=== PATIENT | male | born 1935 | race Caucasian/White ===

== ENCOUNTER 2017-09-17 19:38 | Emergency (ER) | payer OTHER ==
[~2017-09-17] VITALS: Ht 152.4 cm; Wt 64.9 kg
[~2017-09-17 19:38] MED LIST: LEVAQUIN750 MG PO; LIPITOR; MEDROL4 MG PO; PROAIR HFA8.5 GM; PROAIR HFA8.5 GM PO; PROVENTIL HFA6.7 GM IH; PROVENTIL3 ML/2.5 M IH; TUSSIONEX PENNKI5 ML PO; ZYNCOF 20-400120 ML PO; [UNRECOGNIZED DRUG - OTHER]
== END 2017-09-17 23:51 | disposition home or self-care (01) ==
LOC: ER 19:38
DX: J44.9 Chronic obstructive pulmonary disease, unspecified (principal)

== ENCOUNTER → 2017-12-21 | Emergency (ER) | payer OTHER ==
[~2017-12-21] VITALS: Ht 167.6 cm; Wt 65.3 kg
== END | disposition home or self-care (01) ==
LOC: ER 14:20
DX: R07.89 Other chest pain (principal); T82.84 Pain due to cardiac and vascular prosthetic devices, implants and grafts; Z45.02 Encounter for adjustment and management of automatic implantable cardiac defibrillator; Y71.8 Miscellaneous cardiovascular devices associated with adverse incidents, not elsewhere classified

== ENCOUNTER 2018-02-22 13:34 | Emergency (ER) | payer OTHER ==
[~2018-02-22] VITALS: Ht 162.6 cm; Wt 63.0 kg
[2018-02-22] MEDS ORDERED: SINGULAIR10 MG (13:47)
== END 2018-02-22 19:06 | disposition home or self-care (01) ==
LOC: ER 13:34
DX: M25.551 Pain in right hip (principal); M25.561 Pain in right knee

== ENCOUNTER 2018-10-02 20:34 | Emergency (ER) | payer OTHER ==
[~2018-10-02] VITALS: Ht 165.1 cm; Wt 65.8 kg
[~2018-10-02 20:34] MED LIST changes: +SINGULAIR10 MG
== END 2018-10-03 13:47 | disposition left against medical advice (07) ==
LOC: ER 20:34
DX: J45.998 Other asthma (principal); J44.1 Chronic obstructive pulmonary disease with (acute) exacerbation; R53.83 Other fatigue; R09.02 Hypoxemia; J11.1 Influenza due to unidentified influenza virus with other respiratory manifestations